=== PATIENT | male | born 2000 | race Caucasian/White ===

== ENCOUNTER 2025-01-30 11:12 | Outpatient (AMB) | payer OTHER, SELFPAY ==
--- NOTE | 2025-01-30 11:16 | MHC.PC.OV ---
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 Intake Note: patient here for new patient visit Fee Clerk Required: No Allergies Penicillins Allergy (Verified 01/30/25 11:39) Hives Medication List - Last Reconciled 01/30/25 by Jason Scanlon CNP No Known Home Meds Tobacco use date assessed: 01/30/25 Dental Screening Dental Screen Date: 01/30/25 Did you have a dental visit in the last 12 months?: No Did you have a dental problem in the last 6 months where you did not have access to dental care?: No Was dental information given to patient?: Yes HPI HPI Comments History of Present Illness Details 24-year-old male presents to [facility] care. Reports intermittent abdominal spasms when his stomach is empty, drinks alcohol, or eats processed foods, since he had his gallbladder removed in 2018. Denies acute symptoms. Requests antispasmodic for his GI symptoms. Prior PCP? - Dr. Ga, [place], [place] Last office visit/CPE/labs - 2 years ago Acute issue(s) - None Past Medical History - Abdominal spasms Surgical History - Cholecystectomy 2018, appendectomy 2010 Family History - Mom: Breast cancer - PGF: Alcohol abuse, colon cancer - PGM: Alcohol abuse, dementia - MGM: Cancer (unknown) - MGF: Parkinson's disease Social History - Nonsmoker. History of vaping. Drinks 1-2 beers every 1-2 months.. Denies recreational drug use - Has not been making healthy dietary choices. Exercises routinely. Generally sleep well - He is sexually active, in a monogamous relationship, and has no concerns for STDs. Health maintenance - Last eye exam was 2 months ago with Jessica Alonso. Encouraged to sign a release for his PCP to obtain ophthalmology record - Last dental visit was 2-3 years ago; encouraged to schedule an appointment with his dentist for routine dental care - Last Tdap vaccine within the past 6-7 years. Record not currently available - Has not been vaccinated for the flu this season; receives vaccination today Specialists - Ophthalmology [facility] Surgical History (Updated 01/30/25 @ 11:30 by Blanca Garcia MA) History of cholecystectomy Hx of appendectomy Family History (Updated 01/30/25 @ 11:33 by Blanca Garcia MA) Paternal Grandfather Alcohol abuse Colon cancer Paternal Grandmother Alcohol abuse FH: mental illness Maternal Grandfather FH: mental illness Mother Breast cancer Maternal Grandmother Cancer Social History (Updated 01/30/25 @ 11:25 by Blanca Garcia MA) Housing: Apartment Patient Tobacco Use Status: Never used Tobacco e-Cigarette/Vaping Use: Never Used Second Hand Smoke Exposure: No service: No Current occupational status: employed 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 1. Little interest or pleasure in doing things: not at all 2. Feeling down, depressed, or hopeless: not at all 3. Trouble falling or staying asleep, or sleeping too much: not at all 4. Feeling tired or having little energy: not at all 5. Poor appetite or overeating: not at all 6. Feeling bad about yourself - or that you are a failure or have let yourself or your family down: not at all 7. Trouble concentrating on things, such as reading the newspaper or watching television: not at all 8. Moving or speaking so slowly that other people could have noticed. Or the opposite - being so fidgety or restless that you have been moving around a lot more than usual: not at all 9. Thoughts that you would be better off or of hurting yourself in some way: not at all Total score: 0 Depression Screening Interpretation: Negative Depression Screening Done: Yes 81334 - PHQ-9 Billing: Yes Source: Developed by Drs. Tony Saldana, Margot Cloud, Shmuel Cobb and colleagues, with an educational narendra from [employer] Thrive Questionnaire Date Thrive assessed: 01/30/25 I am a: Patient What is your living situation today?: I have a steady place to live Within the past 12 months, did the food you bought not last and you didn't have the money to get more?: Never true Within the past 12 months, did you worry whether your food would run out before you got money to buy more?: Never true Do you have trouble paying for medicines?: No Do you have trouble getting transportation to medical appointments?: No Do you have trouble paying your heating and electricity bill?: No Do you have trouble taking care of your child, family member or friend?: No Do you have trouble with day-to-day activities such as bathing, preparing meals, shopping, managing finances, etc.?: No Are you currently unemployed and looking for a job?: No Are you interested in more education?: No Please select the resources that you would like help with: None Currently or been in a relationship where the following occur: No concerns reported THRIVE Score: 0 AUDIT C Alcohol Use Questionnaire (AUDIT-C) 1. How often do you have a drink containing alcohol?: Monthly or less 2. How many drinks containing alcohol do you have on a typical day when you are drinking?: 1 or 2 3. How often do you have six or more drinks on one occasion?: Never Total Score: 1 Score Reviewed/Action Taken: Yes ALEXI-7 AMB Questionnaire ALEXI-7 Date ALEXI - 7 assessed: 01/30/25 Feeling nervous, anxious, or on edge: 0 = Not at all Not being able to stop or control worryin = Not at all Worrying too much about different things: 0 = Not at all Trouble relaxin = Not at all Being so restless that it is hard to sit still: 0 = Not at all Becoming easily annoyed or irritable: 0 = Not at all Feeling afraid as if something awful might happen: 0 = Not at all Total ALEXI-7 score (0-4 normal; 5-9 mild; 10-14 moderate; 15-21 severe): 0 Source: Developed by Drs. Tony Saldana, Margot Cloud, Shmuel Cobb and colleagues, with an educational narendra from [employer] ALEXI-7 Assessment Billing ALEXI-7 Assessment Tool: ALEXI-7 Assessment 65923 Review of Systems Const Details: Denies chills, Denies fatigue, Denies fever(s), Denies headache(s) and Denies weakness HEENT Denies change in vision, Denies dizziness, Denies headache(s), Denies hearing loss, Denies nasal congestion, Denies sinus pain, Denies sinus pressure and Denies sore throat Card Denies chest pain, Denies lightheadedness, Denies dyspnea and Denies other (palpitations) Resp Denies cough, Denies dyspnea and Denies wheezing GI Denies abdominal pain, Denies melena, Denies hematochezia, Denies change in bowel habits, Denies dyspepsia and Denies nausea Denies hematuria and Denies dysuria Musc Denies abnormal gait, Denies myalgias, Denies arthralgias, Denies numbness and Denies tingling Skin/Breast Denies rash, Denies unusual bruising and Denies wounds Neuro Denies abnormal gait, Denies dizziness, Denies headache(s), Denies memory loss, Denies numbness, Denies Sensory deficit (Neuro), Denies tingling and Denies weakness Psych Denies anxiety, Denies depression and Denies memory loss Endo Denies cold intolerance, Denies fatigue, Denies heat intolerance, Denies polydipsia and Denies polyuria Avery/Lymph Denies easy bleeding and Denies easy bruising Aller/Immun Denies wheezing Physical exam (Primary Care) Vital Signs: Last Vital Signs Temp 98.0 F 01/30/25 11:26 Pulse 73 01/30/25 11:26 Resp 16 01/30/25 11:26 BP 118/62 01/30/25 11:26 Pulse Ox 98 01/30/25 11:26 Oxygen Delivery Method Room Air 01/30/25 11:26 BMI result Body Mass Index 26.4 Tobacco/Smoking Status: Tobacco use Status Tobacco use date assessed 01/30/25 01/30/25 11:24 Patient Tobacco Use Status Never used Tobacco 01/30/25 11:25 e-Cigarette/Vaping Use Never Used 01/30/25 11:25 PHQ-9: PHQ-9 Score PHQ-9: Total score 0 01/30/25 12:04 Depression Screening Interpretation: Negative Thrive Assessment: Date of Thrive Assessment Date Thrive assessed 01/30/25 01/30/25 11:20 Currently or been in a relationship where the following occur: No concerns reported Const Other: General: no acute distress, well developed, alert and awake Nutritional Appearance: well nourished Orientation/consciousness: patient oriented x3 HENMT Head: Yes normocephalic and Yes atraumatic Ears: hearing grossly normal bilaterally and TM's normal bilaterally General nose exam: Normal external nose present and Normal nares present Mouth: Normal oral and palatal mucosa present and moist mucous membranes Teeth and gingiva: dentition normal Throat: Yes oropharynx normal Eyes Pupils: Equal, round and reactive pupils present and Pupil accommodation reflex normal EOM: EOMs intact bilaterally Neck Neck: Yes normal visual inspection, Yes no lymphadenopathy and Yes trachea midline Thyroid: Thyroid normal Carotids: no bruits Lymphatic: no lymphadenopathy noted Chest Chest palpation & inspection: normal inspection of the chest Resp Effort & Inspection: normal respiratory effort Auscultation: clear to auscultation bilaterally Cardio Rate: regular rate Rhythm: regular rhythm Heart sounds: S1 normal heart sound present, S2 normal heart sound present, no gallops, no murmurs and no rubs Bruits: no abdominal aortic bruits and no carotid bruits GI Palpation (GI): No Abdominal aortic bruit present, Soft to palpation, nontender, No hepatosplenomegaly present and No Rebound tenderness present Auscultation: normal bowel sounds General: Yes no CVA tenderness Back/Spine/Pelvis Back: no CVA tenderness Cervical Spine: cervical ROM normal and No Cervical spine tenderness Thoracic/Lumbar Spine: thoraco-lumbar ROM normal, No pain with thoraco-lumbar ROM, No thoracic spinal tenderness and No lumbar spinal tenderness Skin General: warm and dry. Normal skin color. Normal skin turgor Lesions: no lesions Rashes: no rashes Trauma: no lacerations or abrasions Wounds: no wounds Nails: normal Neuro General: patient oriented x3, gait normal and CN's II-XI intact bilaterally Cranial nerves: Yes Equal, round and reactive pupils present Cognition (Neuro): normal cognition Gait exam (Neuro): Normal gait present Motor exam (neuro): 5/5 motor strength present throughout Sensory Exam: No Sensory deficit (Neuro) Deep tendon reflexes (DTR's): Right patellar reflex intensity grade: 2+ and Left patellar reflex intensity grade: 2+ Extrem General: Yes normal to inspection, No edema and No calf tenderness Psych Appearance: grossly normal Affect: normal affect Attitude: cooperative Thought process: Normal thought process present Office Procedures Flu Questionnaire Does the patient have a severe egg allergy?: No Does the patient have severe life threatening allergies?: No Does the patient have a fever or illness today?: No Has the patient ever had Guillain-[place] Syndrome?: No Has the patient ever had any past reaction to a flu shot?: No Immunizations Fluarix [id number] (PF) 45 mcg (15 mcg x 3)/0.5 mL IM syringe Performing Provider: Jason Scanlon CNP [place] [facility] Administered by: Candace Castro RN on 01/30/25 12:02 Dose Route Admin Location Dispensed Lot Number Expiration Date [facility] [place] [employer] 0.5 mL IM Left Deltoid 0.5 mL [id number] 10/23/25 [id number] INCIDE VIS Given Date VIS Provided VIS Publication Date 01/30/25 Single Vaccine 24 Eligibility Eligibility Date Funding Source Not [facility] Eligible 01/30/25 Private Coding Level of Care Code New Pt Level 3 (70535) New Pt Prev Care 18-39yr(65466 Diagnoses Normal physical examination, routine Z00.00 Abdominal spasms R10.9 Laboratory tests ordered as part of a complete physical exam (CPE) Z00.00 Additional Codes ALEXI-7 Assessment Billing - ALEXI-7 Assessment Tool: ALEXI-7 Assessment 18498 ([id number]) PHQ-9 - 48477 - PHQ-9 Billing: Yes ([id number]) Assessment & Plan Assessment & Plan (1) Normal physical examination, routine: Code(s): Z00.00 - Encounter for general adult medical examination without abnormal findings Category: Medical Plan: No significant functional limitations. Healthy diet and routine exercise encouraged. Perform lab work and follow-up for telehealth visit for labs review in 2-4 weeks. Return sooner with symptoms or concerns. Verbalized understanding and agreed with the plan. (2) Abdominal spasms: Code(s): R10.9 - Unspecified abdominal pain Category: Medical Plan: Reports intermittent abdominal spasms when his stomach is empty, drinks alcohol, or eats processed foods, since he had his gallbladder removed in 2018. Denies acute symptoms. Requests antispasmodic for his GI symptoms. Healthy diet and routine exercise encouraged. Referred to Gastroenterology. Follow-up with worsening or new symptoms. Verbalized understanding and agreed with the plan. (3) Laboratory tests ordered as part of a complete physical exam (CPE): Code(s): Z00.00 - Encounter for general adult medical examination without abnormal findings Category: Medical Plan: Fasting labs ordered as part of a complete physical exam. Advised to fast for at least 10 hours before getting labs drawn. May drink water Verbalized understanding and agreed with treatment plan. Orders: Orders Lipid Panel Today Z00.00 - Encounter for general adult medical examination without abnormal findings Microalbumin, Random (w Creat) Today Z00.00 - Encounter for general adult medical examination without abnormal findings Vitamin D 25-OH Total Today Z00.00 - Encounter for general adult medical examination without abnormal findings Influenza [id number] Immunization Today Z23 - Encounter for immunization Complete Blood Count Auto Diff Today Z00.00 - Encounter for general adult medical examination without abnormal findings Comprehensive [place]. Panel Fast Today Z00.00 - Encounter for general adult medical examination without abnormal findings TSH reflex Free T4 Today Z00.00 - Encounter for general adult medical examination without abnormal findings UA CC w/rflx Micro + Cult Today Z00.00 - Encounter for general adult medical examination without abnormal findings Referrals Gastroenterology Referral R10.9 - Unspecified abdominal pain
[2025-01-30 11:26] VITALS: BP 118/62; PULSE 73; RESP 16; TEMP 36.7; O2SAT 98; BMI 26.4
== END 2025-01-30 12:01 | disposition home or self-care (01) ==
LOC: HO.HMCFM 11:13
PROVIDERS: PCP Nurse Practitioner Family; Visit Provider Nurse Practitioner Family
DX: Z00.00 Encounter for general adult medical examination without abnormal findings (principal); R10.9 Unspecified abdominal pain; Z23 Encounter for immunization

== ENCOUNTER → 2025-01-30 11:12 | Outpatient (BNVA) | payer OTHER, SELFPAY | PROVIDERS: PCP Nurse Practitioner Family; Visit Provider Nurse Practitioner Family | DX: Z00.00 Encounter for general adult medical examination without abnormal findings (principal); R10.9 Unspecified abdominal pain; Z23 Encounter for immunization | CPT/HCPCS: 90471; 90656; 96127 ==